=== PATIENT | male | born 1975 | race Caucasian/White ===

== ENCOUNTER → 2022-01-14 | Outpatient (REF) | LOC: M PLAIMG 14:34 | PROVIDERS: ATTEND Internal Medicine | DX: Z00.00 Encounter for general adult medical examination without abnormal findings (principal) ==

== ENCOUNTER → 2023-01-30 | Outpatient (CLI) | payer BC, OTHER | LOC: M PLAIMG 08:42 | PROVIDERS: ATTEND Family Medicine | DX: R05.9 Cough, unspecified (principal) ==